=== PATIENT | male | born 1965 | race Caucasian/White ===

== ENCOUNTER 2018-04-24 23:55 | Inpatient (IN) ==
[2018-04-25 00:19] LABS: Basophils # 0.1 K/mm3 (0-0.2); Basophils % 0.3 % (0.1-2.0); Eosinophils # 0.1 K/mm3 (0.0-0.4); Eosinophils % 0.7 % (0.1-12.0); Hematocrit 46.4 % (42.0-52.0); Hemoglobin 16.2 g/dL (14.1-18.0); Lymphocytes # 2.4 K/mm3 (0.7-4.5); Lymphocytes % 15.9 % (10-50); Mean Corpuscular Hemoglobin 31.2 pg (27.0-31.2); Mean Corpuscular Volume 89.2 fl (80-94); Mean Platelet Volume 8.5 fl (7.4-10.4); Monocytes # 0.7 K/mm3 (0.1-1.0); Monocytes % 4.6 % (1.7-9.3); Neutrophils % 78.4 % (37.0-80.0); Platelet Count 311 K/mm3 (142-424); Red Cell Distribution Width 13.1 % (11.5-17.5); White Blood Count 15.3 K/mm3 (4.8-10.8)
[2018-04-25 00:32] LABS: Albumin Level 3.9 gm/dL (3.4-5.0); Bilirubin,Total 0.8 mg/dL (0.2-1.0); C-Reactive Protein 0.9 mg/L (0.0-0.9); Calcium 9.9 mg/dL (8.5-10.1); Total Protein,Serum 7.9 gm/dL (6.4-8.2)
--- NOTE | 2018-04-25 01:04 | Emergency Department Note ---
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 The time I documented below is in addition to time spent performing reported procedures but includes the following listed in this critical care notation. Medical Decision Making - Medical Records Medical records reviewed: Yes: I reviewed the patient's medical records. - Eduardo Inquiry Pt receiving controlled substance: No Vital Signs: 04/24/18 23:57 04/25/18 01:39 Temperature 98.4 F 98.4 F Temperature Source Oral Oral Pulse Rate [Right] 88 76 Respiratory Rate 20 16 Blood Pressure [Right Arm] 160/101 H 130/77 Blood Pressure Mean [Right Arm] 120 94 Blood Pressure Source [Right Arm] Automatic Cuff Automatic Cuff Blood Pressure Position [Right Arm] Supine Supine 02 Sat by Pulse Oximetry 100 97 Oxygen Delivery Method Room Air Room Air - Lab Data Lab results reviewed: Yes: I reviewed the patient's lab results. Lab Results 04/25/18 00:05: WBC 15.3 H, RBC 5.20, Hgb 16.2, Hct 46.4, MCV 89.2, MCH 31.2, MCHC 35.0, RDW 13.1, Plt Count 311, MPV 8.5, Neut % (Auto) 78.4, Lymph % (Auto) 15.9, [place] % (Auto) 4.6, Eos % (Auto) 0.7, Baso % (Auto) 0.3, Neut # (Auto) 12.0 H, Lymph # (Auto) 2.4, [place] # (Auto) 0.7, Eos # (Auto) 0.1, Baso # (Auto) 0.1, Total Counted 100, Neutrophils % (Manual) 80 H, Lymphocytes % (Manual) 19, Basophils % (Manual) 1.0, Platelet Estimate Normal, RBC Morphology Not Reportable, Anisocytosis 1+ 04/25/18 00:05: Sodium 136, Potassium 4.0, Chloride 99, Carbon Dioxide 26, Anion Gap 15.0, BUN 19 H, Creatinine 1.52 H, Estimated Creat Clear 86, Estimated GFR 49 L, Est GFR ( Amer) 59, Glucose 445 H*, Calcium 9.9, Total Bilirubin 0.8, AST 13 L, ALT 30, Alkaline Phosphatase 128 H, C-Reactive Protein 0.9, Total Protein 7.9, Albumin 3.9, Globulin 4.0 H, Albumin/Globulin Ratio 1.0 L, Amylase 24 L, Lipase 155 04/25/18 00:05: Acetone Level None detected 04/25/18 01:05: Lactate 1.5 Result diagrams: 04/25/18 00:05 04/25/18 00:05 Orders (Tests/Meds): ED MEDICATIONS Generic Name Dose Route Start Last Admin Trade Name Freq PRN Reason Stop Dose Admin Sodium Chloride 1,000 mls @ 999 mls/hr 04/25/18 00:15 04/25/18 00:27 Sod Chlor 0.9% 1000ml Bag IV 04/25/18 01:15 999 mls/hr .[id number] YULIA Administration Discontinued Medications Generic Name Dose Route Start Last Admin Trade Name Freq PRN Reason Stop Dose Admin Ketorolac Tromethamine 30 mg 04/25/18 00:08 04/25/18 00:27 Toradol 30mg/Ml Vial IV 04/25/18 00:09 30 mg ONCE ONE Administration Ondansetron HCl 4 mg 04/25/18 00:08 04/25/18 00:27 Zofran 4mg/2ml Vial IV 04/25/18 00:09 4 mg ONCE ONE Administration ORDERS Category Date Time Status CT abdomen pelvis wo con Stat Cat Scan 04/25/18 00:21 Taken ESR [Erythrocyte Sedimentation Rate] Stat Lab 04/25/18 00:05 Received Urinalysis and Microscopic Stat Lab 04/25/18 00:10 Ordered - CT Data CT Scan: Abdomen, Pelvis Time Received: 01:[address] Reviewed: Yes: I have viewed the radiologist's interpretation Preliminary Findings: Abnormal (sbo) - Physician Consults Physician Consulted: doni Reason -: Admission Nausea/Vomiting/Diarrhea HPI - General Chief complaint: Abdominal Pain Stated complaint: stomach pain,nausea,diarrhea Time Seen by Provider: 04/25/18 00:30 Mode of Arrival: Ambulatory Source of Information: Patient, Medical Record Limitations: No Limitations Description of Symptoms (Recalled from ER Triage Doc. by RN): Pt states he started getting cramps this AM and now having N/V/D with severe mid abd pain - History of Present Illness HPI Narrative: progressive abd pain today with nausea and vomiting MD complaint: nausea, vomiting Onset (ago): hour(s) Associated Abdominal Pain: Yes Location of pain: diffuse Severity: moderate Associated symptoms: denies other symptoms - Related Data Home Medications Medication Instructions Recorded Confirmed Amlodipine Besylate [Norvasc 5mg 5 mg PO DAILY 04/25/18 04/25/18 tablet] Aspirin [Aspir 81] 81 mg PO DAILY 04/25/18 04/25/18 Atorvastatin Calcium [Atorvastatin 40 mg PO DAILY 04/25/18 04/25/18 40mg Tab] Metformin HCl 1,000 mg PO DAILY 04/25/18 04/25/18 Allergies Allergy/AdvReac Type Severity Reaction Status Date / Time morphine Allergy Verified 04/25/18 00:08 [facility] History - Hepatitis A Screen Drug use history?: No High risk sexual behaviors?: No History of sexually transmitted infection?: No Currently employed?: No Childcare worker?: No Do you have indoor plumbing?: Yes Do you have electricity?: Yes Attestation statement:: This patient has been screened for Hepatitis A risk factors. I have reviewed the patient's past medical history: Yes - Social History Alcohol Intake: never Occupational Status: employed - Psychiatric History Expresses thoughts of harming self/others: None Suicide Plan Description: No Plan ROS Obtained: Yes All systems reviewed & no additional complaints - Constitutional Constitutional: Denies fever(s) - Eyes Eyes: Denies change in vision - ENT Ears, Nose, Mouth, and Throat: Denies sore throat - Cardiovascular Cardiovascular: Denies chest pain - Respiratory Respiratory: No cough - Gastrointestinal Gastrointestingal: Reports: as per HPI, abdominal pain, nausea, vomiting - Genitourinary Male Genitourinary: Denies hematuria - Musculoskeletal Musculoskeletal: Denies joint pain - Integumentary/Breasts Skin/Breast: Denies rash - Neurologic Neurologic: Denies seizure-like activity Physical Exam - General General appearance: alert - Head Head exam: normocephalic - Eye Eye exam: Present: PERRL, EOMI. Absent: scleral icterus - ENT ENT exam: Present: mucous membranes dry - Neck Neck exam: Present: trachea midline - Respiratory Respiratory exam: Absent: respiratory distress - Cardiovascular Cardiovascular exam: Present: regular rate, systolic murmur - Abdominal Exam Abdominal exam: Present: soft, tenderness, diminished bowel sounds Abdominal tenderness: Present: diffuse, moderate - Extremities Exam Extremities exam: Present: full ROM - Neurological Exam Neurological exam: Present: alert, oriented X3, CN II-XII intact - Psychiatric Psychiatric exam: Present: normal affect - Skin Skin exam: Absent: rash
[2018-04-25 01:23] LABS: Anisocytosis 1+; Lymphocytes % 19 % (10-50); Neutrophils % 80 % (42-76); Total Cells Counted 100
[2018-04-25 06:52] LABS: Basophils # 0.1 K/mm3 (0-0.2); Basophils % 0.4 % (0.1-2.0); Eosinophils # 0.1 K/mm3 (0.0-0.4); Eosinophils % 0.4 % (0.1-12.0); Hematocrit 41.9 % (42.0-52.0); Lymphocytes # 2.5 K/mm3 (0.7-4.5); Lymphocytes % 15.1 % (10-50); Mean Corpuscular HGB Conc 34.6 g/dL (31.8-35.4); Mean Corpuscular Hemoglobin 31.2 pg (27.0-31.2); Mean Corpuscular Volume 90.2 fl (80-94); Mean Platelet Volume 8.6 fl (7.4-10.4); Monocytes # 1.2 K/mm3 (0.1-1.0); Neutrophils # 12.9 K/mm3 (1.8-7.8); Neutrophils % 77.1 % (37.0-80.0); Platelet Count 257 K/mm3 (142-424); Red Blood Count 4.64 M/mm3 (4.60-6.20); Red Cell Distribution Width 13.3 % (11.5-17.5); White Blood Count 16.7 K/mm3 (4.8-10.8)
[2018-04-25 06:56] LABS: Anion Gap 11.4 mEq/L (5-15); Potassium 4.4 mmoL/L (3.5-5.1)
[2018-04-25 07:20] LABS: Hemoglobin 14.5 g/dL (14.1-18.0)
[2018-04-25 07:22] LABS: Calcium 8.7 mg/dL (8.5-10.1)
--- NOTE | 2018-04-25 07:35 | Pharmacy Consult Notes ---
[facility] Pharmacy VTE Monitoring - Patient Demographics Admission date: 04/25/18 Report Date: 04/25/18 Time: 07:35 Allergies/Adverse Reactions: Patient Allergies morphine Allergy (Verified 04/25/18 00:08) Height: 1.83 m Weight: 104.071 kg Patient Problems: Current Active Problems Small bowel obstruction (Acute) Diabetes mellitus (Acute) - VTE Risk Labs: VTE Related Lab Results Hgb 14.5 g/dL (14.1-18.0) D 04/25/18 06:10 Hct 41.9 % (42.0-52.0) L 04/25/18 06:10 Plt Count 257 K/mm3 (142-424) 04/25/18 06:10 BUN 22 mg/dL (7-18) H 04/25/18 06:10 Creatinine 1.52 mg/dL (0.70-1.30) H 04/25/18 06:10 Estimated Creat Clear 86 mL/min (50-200) 04/25/18 06:10 VTE Score: 1 VTE Risk Level: Very Low Risk - Prophylaxis VTE Prophylaxis Ordered?: Yes Types of VTE Prophylaxis: TEDS Knee High Location of Applied Device: Bilateral Lower Extremeties - VTE Diagnosis Confirmed Treatment or plan recommended: Continue Current Treatment
--- NOTE | 2018-04-25 08:25 | History & Physical Report ---
*Admission Date: 04/25/18 *Chief complaint: Abdominal pain/vomiting *History of present illness: 52 old white male with history of coronary disease-status post CABG in 2005, along with diabetes, but no prior intra-abdominal surgery, who presented to the emergency department early this morning after 18 hours of increasing abdominal pain accompanied with vomiting. He reports that yesterday morning he awoke and felt pain in his abdomen that increased throughout the day and caused him to leave work early and come back to his home. He had multiple formed stools without blood or melena and then began to vomit. He denied coffee-ground emesis or blood in the emesis but became afflicted by increased pain. He presented to the emergency department early this morning where he was found to have evidence of small obstruction with mesenteric inflammation. Labs were otherwise fairly unremarkable except for hyperglycemia, but normal amylase/lipase were noted. [facility] History I have reviewed the patient's past medical history: Yes Medical History: Reports:: Coronary Artery Disease, Diabetes Mellitus Type 2, Hyperlipidemia, Hypertension Denies:: Cancer, Diabetes Mellitus Type 1, MRSA *Have you ever received a pneumonia vaccine?: No *Have you received a flu vaccine this season?: No Laterality Cases: Bilateral: Total Knee Replacement Other Surgeries: Yes: CABG Amputation: No - *Social History Alcohol Intake: current Alcohol Intake Frequency:: holidays/special occasions only *Occupational Status:: employed *Travel in the last 8 weeks: None - Psychiatric History Expresses thoughts of harming self/others: None Suicide Plan Description: No Plan Family Hx:: No significant family history Review of Systems - Review of Systems Review of systems:: pertinent systems reviewed and negative unless documented below - Constitutional Reports anorexia, Reports body ache(s) - Eyes Denies blind spots, Denies blurry vision, Denies change in vision - ENT Denies abnormal hearing, Denies bleeding gums - *Cardiovascular Denies chest pain, Denies chest pain at rest, Denies shortness of breath, Denies shortness of breath with activity, Denies irregular heart rhythm, Denies leg swelling - *Respiratory Denies change in phlegm color, Denies chest congestion, Denies cough - *Gastrointestinal Reports abdominal pain, Reports belching, Reports bloating, Reports change in bowel habits, Denies coffee ground vomit, Denies constipation, Denies vomiting blood, Denies bright, red blood in stools - *Genitourinary Denies difficulty urinating - *Musculoskeletal Denies abnormal walking - Integumentary/Breasts Denies acne - *Neurologic Denies seizure-like activity - Psychiatric Denies abnormal sleep pattern - Endocrine Denies cold intolerance - Hematologic/Lymphatic Denies easy bleeding Meds Home Medications Medication Instructions Recorded Confirmed Type Amlodipine Besylate 10 mg PO DAILY 04/25/18 04/25/18 History Aspirin [Aspir 81] 81 mg PO DAILY 04/25/18 04/25/18 History Atorvastatin Calcium [Atorvastatin 80 mg PO DAILY 04/25/18 04/25/18 History 80mg Tab] Ezetimibe 10 mg PO DAILY 04/25/18 04/25/18 History Losartan Potassium 50 mg PO DAILY 04/25/18 04/25/18 History Metformin HCl 1,000 mg PO BIDWM 04/25/18 04/25/18 History Allergies Allergy/AdvReac Type Severity Reaction Status Date / Time morphine Allergy Verified 04/25/18 00:08 Exam Vital signs and Labs for Last 24 Hours: Temp Pulse Resp BP Pulse Ox 97.8 F 77 18 113/74 94 L 04/25/18 08:00 04/25/18 08:00 04/25/18 08:00 04/25/18 08:00 04/25/18 08:00 Laboratory Results - last 24 hr 04/25/18 00:05: WBC 15.3 H, RBC 5.20, Hgb 16.2, Hct 46.4, MCV 89.2, MCH 31.2, MCHC 35.0, RDW 13.1, Plt Count 311, MPV 8.5, Neut % (Auto) 78.4, Lymph % (Auto) 15.9, [place] % (Auto) 4.6, Eos % (Auto) 0.7, Baso % (Auto) 0.3, Neut # (Auto) 12.0 H, Lymph # (Auto) 2.4, [place] # (Auto) 0.7, Eos # (Auto) 0.1, Baso # (Auto) 0.1, Total Counted 100, Neutrophils % (Manual) 80 H, Lymphocytes % (Manual) 19, Basophils % (Manual) 1.0, Platelet Estimate Normal, RBC Morphology Not Reportable, Anisocytosis 1+ 04/25/18 00:05: Sodium 136, Potassium 4.0, Chloride 99, Carbon Dioxide 26, Anion Gap 15.0, BUN 19 H, Creatinine 1.52 H, Estimated Creat Clear 86, Estimated GFR 49 L, Est GFR ( Amer) 59, Glucose 445 H*, Calcium 9.9, Total Bilirubin 0.8, AST 13 L, ALT 30, Alkaline Phosphatase 128 H, C-Reactive Protein 0.9, Total Protein 7.9, Albumin 3.9, Globulin 4.0 H, Albumin/Globulin Ratio 1.0 L, Amylase 24 L, Lipase 155 04/25/18 00:05: Acetone Level None detected 04/25/18 00:05: ESR 29 H 04/25/18 01:05: Lactate 1.5 04/25/18 06:10: WBC 16.7 H, RBC 4.64, Hgb 14.5 D, Hct 41.9 L, MCV 90.2, MCH 31.2, MCHC 34.6, RDW 13.3, Plt Count 257, MPV 8.6, Neut % (Auto) 77.1, Lymph % (Auto) 15.1, [place] % (Auto) 7.0, Eos % (Auto) 0.4, Baso % (Auto) 0.4, Neut # (Auto) 12.9 H, Lymph # (Auto) 2.5, [place] # (Auto) 1.2 H, Eos # (Auto) 0.1, Baso # (Auto) 0.1 04/25/18 06:10: Sodium 138, Potassium 4.4, Chloride 104, Carbon Dioxide 27, Anion Gap 11.4, BUN 22 H, Creatinine 1.52 H, Estimated Creat Clear 86, Estimated GFR 49 L, Est GFR ( Amer) 59, Glucose 378 H, Calcium 8.7 D 04/25/18 06:46: POC Glucose 377 H* I & O for Last 24 hours: Intake & Output 04/22/18 04/23/18 04/24/18 04/25/18 11:59 11:59 11:59 11:59 Intake Total 1000 / 1000 Balance 1000 / 1000 Weight 229 lb 7 oz Narrative: Patient is awake, oriented x3. No scleral icterus, no jaundice. Cranial nerves intact, oropharynx clear, JVD. Lungs clear. Heart regular. Abdomen is diffusely tender, hyperactive bowel sounds. Patient actively vomiting but no regurgitant person. No distal edema clubbing or cyanosis. 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 Surgical consultation. Continue n.p.o. status.
--- NOTE | 2018-04-25 11:29 | Consult Report ---
*Admission Date: 04/25/18 *Chief complaint: Abdominal pain *History of present illness: Patient is a 52-year-old otherwise healthy white male from [place] with a history of diabetes and coronary artery disease status post prior CABG. No prior history of abdominal issues or prior abdominal surgeries. He states that he awoke yesterday morning on 04/24/18 with some vague upper abdominal pain. This became progressively severe throughout the day. He had some abdominal bloating and felt some nausea. He induced vomiting which gave him some temporary relief but then the pain and nausea recurred. He did have multiple formed stools yesterday which is unusual for him. Denies any passage of blood. He presented to the emergency department here at [facility] late yesterday evening. His workup includes CT scan without any contrast whatsoever which revealed findings of small bowel obstruction. Exact transition point was difficult to identify but there was also some mesenteric haziness and inflammation and a small amount of ascites. Patient has no similar prior symptoms. Overnight after admission he had some dry heaves and retching. Surgical consultation was ordered this morning. Patient was ordered nasogastric tube. He has had no additional retching or vomiting. He states that his pain has improved but his abdomen is "sore". Review of Systems - Review of Systems Review of systems:: pertinent systems reviewed and negative unless documented below - Constitutional Denies anorexia, Denies chills - Eyes Denies change in vision - ENT Denies abnormal hearing - *Cardiovascular Denies chest pain - *Respiratory Denies cough - *Gastrointestinal Reports abdominal pain, Reports belching, Reports change in stools, Reports vomiting - *Genitourinary Denies difficulty urinating - *Musculoskeletal Denies abnormal walking - *Neurologic Denies abnormal walking, Denies abnormal hearing, Denies seizure-like activity [facility] History Medical History: Reports:: Coronary Artery Disease, Diabetes Mellitus Type 2, Hyperlipidemia, Hypertension Denies:: Cancer, Diabetes Mellitus Type 1, MRSA *Have you ever received a pneumonia vaccine?: No *Have you received a flu vaccine this season?: No Laterality Cases: Bilateral: Total Knee Replacement Other Surgeries: Yes: CABG Amputation: No - *Social History Alcohol Intake: current Alcohol Intake Frequency:: holidays/special occasions only *Occupational Status:: employed *Travel in the last 8 weeks: None - Psychiatric History Expresses thoughts of harming self/others: None Suicide Plan Description: No Plan Family Hx:: No significant family history Meds Home Medications Medication Instructions Recorded Confirmed Type Amlodipine Besylate 10 mg PO DAILY 04/25/18 04/25/18 History Aspirin [Aspir 81] 81 mg PO DAILY 04/25/18 04/25/18 History Atorvastatin Calcium [Atorvastatin 80 mg PO DAILY 04/25/18 04/25/18 History 80mg Tab] Ezetimibe 10 mg PO DAILY 04/25/18 04/25/18 History Losartan Potassium 50 mg PO DAILY 04/25/18 04/25/18 History Metformin HCl 1,000 mg PO BIDWM 04/25/18 04/25/18 History Allergies Allergy/AdvReac Type Severity Reaction Status Date / Time morphine Allergy Verified 04/25/18 00:08 Exam Vital signs and Labs for Last 24 Hours: Temp Pulse Resp BP Pulse Ox 97.8 F 77 18 113/74 94 L 04/25/18 08:00 04/25/18 08:00 04/25/18 08:00 04/25/18 08:00 04/25/18 08:00 Laboratory Results - last 24 hr 04/25/18 00:05: WBC 15.3 H, RBC 5.20, Hgb 16.2, Hct 46.4, MCV 89.2, MCH 31.2, MCHC 35.0, RDW 13.1, Plt Count 311, MPV 8.5, Neut % (Auto) 78.4, Lymph % (Auto) 15.9, [place] % (Auto) 4.6, Eos % (Auto) 0.7, Baso % (Auto) 0.3, Neut # (Auto) 12.0 H, Lymph # (Auto) 2.4, [place] # (Auto) 0.7, Eos # (Auto) 0.1, Baso # (Auto) 0.1, Total Counted 100, Neutrophils % (Manual) 80 H, Lymphocytes % (Manual) 19, Basophils % (Manual) 1.0, Platelet Estimate Normal, RBC Morphology Not Reportable, Anisocytosis 1+ 04/25/18 00:05: Sodium 136, Potassium 4.0, Chloride 99, Carbon Dioxide 26, Anion Gap 15.0, BUN 19 H, Creatinine 1.52 H, Estimated Creat Clear 86, Estimated GFR 49 L, Est GFR ( Amer) 59, Glucose 445 H*, Calcium 9.9, Total Bilirubin 0.8, AST 13 L, ALT 30, Alkaline Phosphatase 128 H, C-Reactive Protein 0.9, Total Protein 7.9, Albumin 3.9, Globulin 4.0 H, Albumin/Globulin Ratio 1.0 L, Amylase 24 L, Lipase 155 04/25/18 00:05: Acetone Level None detected 04/25/18 00:05: ESR 29 H 04/25/18 01:05: Lactate 1.5 04/25/18 06:10: WBC 16.7 H, RBC 4.64, Hgb 14.5 D, Hct 41.9 L, MCV 90.2, MCH 31.2, MCHC 34.6, RDW 13.3, Plt Count 257, MPV 8.6, Neut % (Auto) 77.1, Lymph % (Auto) 15.1, [place] % (Auto) 7.0, Eos % (Auto) 0.4, Baso % (Auto) 0.4, Neut # (Auto) 12.9 H, Lymph # (Auto) 2.5, [place] # (Auto) 1.2 H, Eos # (Auto) 0.1, Baso # (Auto) 0.1 04/25/18 06:10: Sodium 138, Potassium 4.4, Chloride 104, Carbon Dioxide 27, Anion Gap 11.4, BUN 22 H, Creatinine 1.52 H, Estimated Creat Clear 86, Estimated GFR 49 L, Est GFR ( Amer) 59, Glucose 378 H, Calcium 8.7 D 04/25/18 06:46: POC Glucose 377 H* I & O for Last 24 hours: Intake & Output 04/22/18 04/23/18 04/24/18 04/25/18 11:59 11:59 11:59 11:59 Intake Total 1000 / 1000 Balance 1000 / 1000 Weight 229 lb 7 oz - *Routine HEENT Exam Head: Present: normocephalic Eye: Present: EOMI, PERRL ENT: Present: mucous membranes moist - *Routine Neck Exam Present: supple. Absent: lymphadenopathy - *Routine Respiratory Exam Present: CTA bilaterally - *Routine Cardiovascular Exam Present: RRR - *Routine Abdominal Exam Present: soft, tenderness Comments: His abdomen is soft. He has hypoactive bowel sounds. He does have some tender ness with voluntary guarding diffusely. - *Routine Extremities Exam Absent: cyanosis, clubbing, edema - *Routine Skin Exam Present: warm. Absent: rash - *Routine Neurological Exam Present: alert, oriented X3 - Detailed Eye Exam Eyelids: Left normal inspection Results - Labs 04/25/18 06:10 04/25/18 06:10 Laboratory Results - last 24 hr 04/25/18 00:05: WBC 15.3 H, RBC 5.20, Hgb 16.2, Hct 46.4, MCV 89.2, MCH 31.2, MCHC 35.0, RDW 13.1, Plt Count 311, MPV 8.5, Neut % (Auto) 78.4, Lymph % (Auto) 15.9, [place] % (Auto) 4.6, Eos % (Auto) 0.7, Baso % (Auto) 0.3, Neut # (Auto) 12.0 H, Lymph # (Auto) 2.4, [place] # (Auto) 0.7, Eos # (Auto) 0.1, Baso # (Auto) 0.1, Total Counted 100, Neutrophils % (Manual) 80 H, Lymphocytes % (Manual) 19, Basophils % (Manual) 1.0, Platelet Estimate Normal, RBC Morphology Not Reportable, Anisocytosis 1+ 04/25/18 00:05: Sodium 136, Potassium 4.0, Chloride 99, Carbon Dioxide 26, Anion Gap 15.0, BUN 19 H, Creatinine 1.52 H, Estimated Creat Clear 86, Estimated GFR 49 L, Est GFR ( Amer) 59, Glucose 445 H*, Calcium 9.9, Total Bilirubin 0.8, AST 13 L, ALT 30, Alkaline Phosphatase 128 H, C-Reactive Protein 0.9, Total Protein 7.9, Albumin 3.9, Globulin 4.0 H, Albumin/Globulin Ratio 1.0 L, Amylase 24 L, Lipase 155 04/25/18 00:05: Acetone Level None detected 04/25/18 00:05: ESR 29 H 04/25/18 01:05: Lactate 1.5 04/25/18 06:10: WBC 16.7 H, RBC 4.64, Hgb 14.5 D, Hct 41.9 L, MCV 90.2, MCH 31.2, MCHC 34.6, RDW 13.3, Plt Count 257, MPV 8.6, Neut % (Auto) 77.1, Lymph % (Auto) 15.1, [place] % (Auto) 7.0, Eos % (Auto) 0.4, Baso % (Auto) 0.4, Neut # (Auto) 12.9 H, Lymph # (Auto) 2.5, [place] # (Auto) 1.2 H, Eos # (Auto) 0.1, Baso # (Auto) 0.1 04/25/18 06:10: Sodium 138, Potassium 4.4, Chloride 104, Carbon Dioxide 27, Anion Gap 11.4, BUN 22 H, Creatinine 1.52 H, Estimated Creat Clear 86, Estimated GFR 49 L, Est GFR ( Amer) 59, Glucose 378 H, Calcium 8.7 D 04/25/18 06:46: POC Glucose 377 H* Assessment and Plan (1) Diabetes mellitus Current visit: Yes Status: Acute Qualifiers: Diabetes mellitus type: type 2 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 His presentation is unusual in that he is prior abdominal surgery. There is no clear evidence of any obstructing mass on his noncontrast CT scan. Patient has had some improvement in symptoms with nasogastric tube placement however it is quite concerning with the ongoing abdominal tenderness. I will plan to check a acute abdominal series to evaluate placement of nasogastric tube. Continue to follow closely. If no significant clinical improvement could require exploratory laparotomy. If he shows some partial improvement may repeat CT scan with IV and oral contrast to better ascertain the etiology.
[2018-04-26 06:31] LABS: Basophils % 0.3 % (0.1-2.0); Eosinophils # 0.2 K/mm3 (0.0-0.4); Eosinophils % 2.6 % (0.1-12.0); Lymphocytes # 2.3 K/mm3 (0.7-4.5); Lymphocytes % 29.2 % (10-50); Mean Corpuscular HGB Conc 34.9 g/dL (31.8-35.4); Mean Corpuscular Hemoglobin 31.4 pg (27.0-31.2); Mean Corpuscular Volume 90.1 fl (80-94); Mean Platelet Volume 8.5 fl (7.4-10.4); Monocytes # 0.4 K/mm3 (0.1-1.0); Monocytes % 4.8 % (1.7-9.3); Neutrophils # 4.9 K/mm3 (1.8-7.8); Neutrophils % 63.1 % (37.0-80.0); Platelet Count 203 K/mm3 (142-424); Red Cell Distribution Width 13.5 % (11.5-17.5); White Blood Count 7.7 K/mm3 (4.8-10.8)
[2018-04-26 06:56] LABS: Albumin Level 2.8 gm/dL (3.4-5.0); Albumin/Globulin Ratio 0.9 (1.1-1.8); Anion Gap 11.3 mEq/L (5-15); Bilirubin,Total 0.6 mg/dL (0.2-1.0); Calcium 8.3 mg/dL (8.5-10.1); Globulin 3.2 gm/dl (1.3-3.2); Potassium 3.3 mmoL/L (3.5-5.1)
[2018-04-26 07:04] LABS: Hemoglobin 12.6 g/dL (14.1-18.0)
--- NOTE | 2018-04-26 08:10 | Progress Note ---
Subjective Patient reports: feels better Narrative: Passed some gas yesterday. Biggest complaint is sore throat and ear congestion. NG output appears mostly consistent with melted ice chips. Exam Vital signs and Labs for Last 24 Hours: Temp Pulse Resp BP Pulse Ox 98.9 F 73 18 149/87 H 97 04/26/18 07:36 04/26/18 07:36 04/26/18 07:36 04/26/18 07:36 04/26/18 07:36 Laboratory Results - last 24 hr 04/25/18 11:25: POC Glucose 328 H* 04/25/18 12:44: Lactate 1.7 04/25/18 16:24: POC Glucose 214 H 04/25/18 20:31: POC Glucose 161 H 04/26/18 05:34: WBC 7.7 D, RBC 4.00 L, Hgb 12.6 L D, Hct 36.0 L, MCV 90.1, MCH 31.4 H, MCHC 34.9, RDW 13.5, Plt Count 203, MPV 8.5, Neut % (Auto) 63.1, Lymph % (Auto) 29.2, [place] % (Auto) 4.8, Eos % (Auto) 2.6, Baso % (Auto) 0.3, Neut # (Auto) 4.9, Lymph # (Auto) 2.3, [place] # (Auto) 0.4, Eos # (Auto) 0.2, Baso # (Auto) 0.0 04/26/18 05:34: Sodium 146 H, Potassium 3.3 L D, Chloride 111 H, Carbon Dioxide 27, Anion Gap 11.3, BUN 21 H, Creatinine 1.25, Estimated Creat Clear 105, Estimated GFR 61, Est GFR ( Amer) 74 D, Glucose 187 H D, Calcium 8.3 L, Total Bilirubin 0.6, AST 9 L D, ALT 22 D, Alkaline Phosphatase 78, Total Protein 6.0 L, Albumin 2.8 L D, Globulin 3.2, Albumin/Globulin Ratio 0.9 L, Amylase 24 L 04/26/18 05:34: Lipase 153 04/26/18 06:06: POC Glucose 180 H I & O for Last 24 hours: Intake & Output 04/23/18 04/24/18 04/25/18 04/26/18 11:59 11:59 11:59 11:59 Intake Total 1000 / 1000 4023 / 4023 Output Total 1100 / 1100 700 / 700 Balance -100 / -100 3323 / 3323 Weight 229 lb 231 lb 7 oz - *Routine Abdominal Exam Present: soft, tenderness Comments: Mild tenderness on right lower abdomen. No guarding or rebound. Progress Note: A&P (1) Diabetes mellitus Status: Acute Current Visit: Yes (2) Small bowel obstruction Status: Acute Current Visit: Yes Assessment and Plan for All Diagnoses:: Repeat CT scan with IV and oral contrast for follow up and better evaluation. If repeat CT scan shows improvement then may try NG tube out.
--- NOTE | 2018-04-26 08:32 | Progress Note ---
Internal Medicine - PN: Subj *Date: 04/26/18 *Time: 08:00 Interval history: Patient c/o sore throat and ear pain. NGT drainage is light colored, output has significantly decreased per RN. Abdominal pain improved, no nausea. No diarrhea Exam Vital signs and Labs for Last 24 Hours: Temp Pulse Resp BP Pulse Ox 98.9 F 73 18 149/87 H 97 04/26/18 07:36 04/26/18 07:36 04/26/18 07:36 04/26/18 07:36 04/26/18 07:36 Laboratory Results - last 24 hr 04/25/18 11:25: POC Glucose 328 H* 04/25/18 12:44: Lactate 1.7 04/25/18 16:24: POC Glucose 214 H 04/25/18 20:31: POC Glucose 161 H 04/26/18 05:34: WBC 7.7 D, RBC 4.00 L, Hgb 12.6 L D, Hct 36.0 L, MCV 90.1, MCH 31.4 H, MCHC 34.9, RDW 13.5, Plt Count 203, MPV 8.5, Neut % (Auto) 63.1, Lymph % (Auto) 29.2, Ralls % (Auto) 4.8, Eos % (Auto) 2.6, Baso % (Auto) 0.3, Neut # (Auto) 4.9, Lymph # (Auto) 2.3, Ralls # (Auto) 0.4, Eos # (Auto) 0.2, Baso # (Auto) 0.0 04/26/18 05:34: Sodium 146 H, Potassium 3.3 L D, Chloride 111 H, Carbon Dioxide 27, Anion Gap 11.3, BUN 21 H, Creatinine 1.25, Estimated Creat Clear 105, Estimated GFR 61, Est GFR ( Amer) 74 D, Glucose 187 H D, Calcium 8.3 L, Total Bilirubin 0.6, AST 9 L D, ALT 22 D, Alkaline Phosphatase 78, Total Protein 6.0 L, Albumin 2.8 L D, Globulin 3.2, Albumin/Globulin Ratio 0.9 L, Amylase 24 L 04/26/18 05:34: Lipase 153 04/26/18 06:06: POC Glucose 180 H I & O for Last 24 hours: Intake & Output 04/23/18 04/24/18 04/25/18 04/26/18 11:59 11:59 11:59 11:59 Intake Total 1000 / 1000 4023 / 4023 Output Total 1100 / 1100 700 / 700 Balance -100 / -100 3323 / 3323 Weight 229 lb 231 lb 7 oz Narrative: ALert and oriented x3. Rate and rhythm regular. No murmur. No LE edema. Lung sounds clear and equal. Abdomen soft with diffuse tenderness, improved. 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 supervisor use Diabetes mellitus complication status: with unspecified complications Qualified Code(s): E11.8 - Type 2 diabetes mellitus with unspecified complications; Z79.4 - snf (current) use of insulin Category: Medical Code(s): E11.9 - Type 2 diabetes mellitus without complications (2) Small bowel obstruction Current visit: Yes Status: Acute Category: Medical Code(s): K56.609 - Unspecified intestinal obstruction, unspecified as to partial versus complete obstruction - Assessment and plan all Dx Assessment and Plan for all problems:: Sore throat and ear discomfort is due to irritation from NGT. CT scan of abdomen today. Will remove pending surgery recommendation.
--- NOTE | 2018-04-27 07:47 | Progress Note ---
Subjective Patient reports: feels better Narrative: Patient states that he feels better. His CT scan with IV and oral contrast yesterday revealed no evidence of any bowel obstruction with good transit of contrast. There is no bowel distention however there was some findings of thickening of the small bowel. Exam Vital signs and Labs for Last 24 Hours: Temp Pulse Resp BP Pulse Ox 98.2 F 69 18 153/84 H 97 04/27/18 04:00 04/27/18 04:00 04/27/18 04:00 04/27/18 04:00 04/27/18 04:00 Laboratory Results - last 24 hr 04/26/18 12:01: POC Glucose 170 H 04/26/18 16:36: POC Glucose 143 H 04/26/18 20:49: POC Glucose 197 H I & O for Last 24 hours: Intake & Output 04/24/18 04/25/18 04/26/18 04/27/18 11:59 11:59 11:59 11:59 Intake Total 1000 / 1000 3373 / 3373 4565 / 4565 Output Total 1100 / 1100 1350 / 1350 Balance -100 / -100 2022 4565 / 4565 Weight 229 lb 231 lb 7 oz 231 lb 1 oz - *Routine Abdominal Exam Present: soft Comments: He has very minimal tenderness in the mid abdomen. Progress Note: A&P (1) Diabetes mellitus Status: Acute Current Visit: Yes (2) Small bowel obstruction Status: Acute Current Visit: Yes Assessment and Plan for All Diagnoses:: He has shown clinical improvement. Unclear as to the etiology. This may be some sort of inflammatory enteritis. We will go ahead and advance his diet. If he continues to improve possible discharge soon with outpatient follow-up.
--- NOTE | 2018-04-27 08:39 | Progress Note ---
Internal Medicine - PN: Subj *Date: 04/27/18 *Time: 08:38 Interval history: Patient overall feels well, tolerated liquids last night and this morning very nicely. See surgery note. Exam Vital signs and Labs for Last 24 Hours: Temp Pulse Resp BP Pulse Ox 98.3 F 69 18 154/73 H 95 04/27/18 08:00 04/27/18 08:00 04/27/18 08:00 04/27/18 08:00 04/27/18 08:00 Laboratory Results - last 24 hr 04/26/18 12:01: POC Glucose 170 H 04/26/18 16:36: POC Glucose 143 H 04/26/18 20:49: POC Glucose 197 H I & O for Last 24 hours: Intake & Output 04/24/18 04/25/18 04/26/18 04/27/18 11:59 11:59 11:59 11:59 Intake Total 1000 / 1000 3373 / 3373 4565 / 4565 Output Total 1100 / 1100 1350 / 1350 Balance -100 / -100 2022 4565 / 4565 Weight 229 lb 231 lb 7 oz 231 lb 1 oz Narrative: Vision is talkative. Oriented. Oropharynx clear. No JVD. Heart rate without murmurs. Lungs clear. Abdomen soft, normalized bowel sounds. Minimal tenderness with deep palpation but vastly improved. No clubbing or edema. 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 Agree with surgical plan.
--- NOTE | 2018-04-27 13:52 | Discharge Summary ---
General - General Admission date:: 04/25/18 Discharge date: 04/27/18 HPI HPI: 52 old white male with history of coronary disease-status post CABG in 2005, along with diabetes, but no prior intra-abdominal surgery, who presented to the emergency department early this morning after 18 hours of increasing abdominal pain accompanied with vomiting. He reports that yesterday morning he awoke and felt pain in his abdomen that increased throughout the day and caused him to leave work early and come back to his home. He had multiple formed stools without blood or melena and then began to vomit. He denied coffee-ground emesis or blood in the emesis but became afflicted by increased pain. He presented to the emergency department early this morning where he was found to have evidence of small obstruction with mesenteric inflammation. Labs were otherwise fairly unremarkable except for hyperglycemia, but normal amylase/lipase were noted. Hospital Course Hospital Course: Patient was admitted to hospital, made n.p.o., NG tube was placed which resulted in 2-3 L of gastric contents being evacuated with good relief of symptoms of pain and distention. X-rays and CT scan showed improvement of small bowel obstruction and NG tube was removed and patient was given clear liquid diet. Patient's diet was advanced to full liquids with good toleration. Patient noted that he had been on multiple antibiotics over the past 6 months for ear infections and sinus infections and when he began to have a little bit of diarrhea PCR testing was done which revealed a positive test for C. difficile. As a result patient will be placed on p.o. vancomycin. He is feeling well, walking well, exam is normalized as noted below. He will be discharged home with p.o. vancomycin and p.o. probiotics and close follow-up with his regular physician. Objective Vital signs: Temp Pulse Resp BP Pulse Ox 98.3 F 69 18 154/73 H 95 04/27/18 08:00 04/27/18 08:00 04/27/18 08:00 04/27/18 08:00 04/27/18 08:00 Narrative: Patient is pleasant, ambulatory, neurologically intact. No scleral icterus. No jaundice. Abdomen soft, minimal tenderness with vigorous/deep palpation but vastly improved. Normal bowel sounds. Lungs clear, heart rate regular. No edema or clubbing or cyanosis. Results Labs on day of discharge: Labs from last 24 hours 04/27/18 04/27/18 04/27/18 11:22 10:00 06:11 POC Glucose 278 H 144 H Stl Aeromonas (PCR) Not detected Stl C. cayetanensis PCR Not detected Stool Rotavirus (PCR) Not detected Stl Adenov F 40/41 PCR Not detected Stool Astrovirus (PCR) Not detected Stool Campylobacter PCR Not detected Stl C.difficile Tox PCR Detected A Stool Cryptosporidium PCR Not detected Stl E.coli Shiga Tox PCR Not detected Stool E coli O157 PCR Not detected Stl Enterotoxigenic E PCR Not detected Stool EPEC (PCR) Not detected Stool EAEC (PCR) Not detected Stl E. histolytica PCR Not detected Stool Giardia Lamblia PCR Not detected Stool Salmonella PCR Not detected Stool Sapovirus (PCR) Not detected Stl P. shigelloides PCR Not detected Stl Shigella/EIEC PCR Not detected St Y.enterocolitica PCR Not detected Stool Vibrio (PCR) Not detected Stl Vibrio cholerae PCR Not detected Stl Norovirus GI/GII PCR Not detected 04/26/18 04/26/18 20:49 16:36 POC Glucose 197 H 143 H Stl Aeromonas (PCR) Stl C. cayetanensis PCR Stool Rotavirus (PCR) Stl Adenov F 40/41 PCR Stool Astrovirus (PCR) Stool Campylobacter PCR Stl C.difficile Tox PCR Stool Cryptosporidium PCR Stl E.coli Shiga Tox PCR Stool E coli O157 PCR Stl Enterotoxigenic E PCR Stool EPEC (PCR) Stool EAEC (PCR) Stl E. histolytica PCR Stool Giardia Lamblia PCR Stool Salmonella PCR Stool Sapovirus (PCR) Stl P. shigelloides PCR Stl Shigella/EIEC PCR St Y.enterocolitica PCR Stool Vibrio (PCR) Stl Vibrio cholerae PCR Stl Norovirus GI/GII PCR DS: Diagnosis - Discharge Diagnosis (1) Diabetes mellitus Status: Chronic (2) Small bowel obstruction Status: Resolved (3) Clostridium difficile colitis Status: Acute Problem details: Community-acquired secondary to outpatient anita iotic use Discharge Plan - Patient Discharge Instructions ACTIVITY: Continue current activity DIET: low fat, low cholesterol Patient Instructions: Acute Abdominal Pain, Small Bowel Obstruction, [place] Diet, Antibiotic-associated Colitis -- C difficile - Follow up Plan Follow up with: Jose Thrasher [Primary Care Provider] - 05/02/18 Disposition: Home, Self-[facility] Medications: Home Medications Medication Instructions Recorded Confirmed Type Amlodipine Besylate 10 mg PO DAILY 04/25/18 04/25/18 History Aspirin [Aspir 81] 81 mg PO DAILY 04/25/18 04/25/18 History Atorvastatin Calcium [Atorvastatin 80 mg PO DAILY 04/25/18 04/25/18 History 80mg Tab] Ezetimibe 10 mg PO DAILY 04/25/18 04/25/18 History Losartan Potassium 50 mg PO DAILY 04/25/18 04/25/18 History Metformin HCl 1,000 mg PO BIDWM 04/25/18 04/25/18 History L. Acidophilus/Strept/LA P-Nehemiah 1 cap PO DAILY 30 Days #30 capsule 04/27/18 Rx [Debora-Q Probiotic Capsule] Vancomycin HCl [Vancomycin 500mg 125 mg PO QID #28 vial 04/27/18 Rx vial] Prescriptions/Medication Reconciliation: New Vancomycin HCl [Vancomycin 500mg vial] 125 mg PO QID #28 vial L. Acidophilus/Strept/LA P-Nehemiah [Debora-Q Probiotic Capsule] 1 cap PO DAILY 30 Days #30 capsule Continue Metformin HCl 1,000 mg PO BIDWM Aspirin [Aspir 81] 81 mg PO DAILY Atorvastatin Calcium [Atorvastatin 80mg Tab] 80 mg PO DAILY Losartan Potassium 50 mg PO DAILY Ezetimibe 10 mg PO DAILY Amlodipine Besylate 10 mg PO DAILY
== END 2018-04-27 14:45 | disposition home or self-care (01) | DRG 389 ==
LOC: ER 23:55 → 2ND 23:55 → OBSVTOIN 04-25 02:15 → 2ND 04-25 02:16
PROVIDERS: ADMIT Internal Medicine Adolescent Medicine; ATTEND Internal Medicine Adolescent Medicine
CPT/HCPCS: 36415; 74019; 74020; 74176; 74177; 80048; 80053; 82009; 82150; 82962; 83605; 83690; 85007; 85025; 85651; 86140; 87040; 87507; 96365; 96375; 99284; J2405; J3370

== ENCOUNTER 2020-03-18 14:56 | Emergency (ER) | payer MEDICAID, SELFPAY ==
[2020-03-18 14:58] VITALS: BP 188/101; PULSE 80; RESP 20; TEMP 36.7; O2SAT 96; BMI 30.5
--- NOTE | 2020-03-18 15:15 | XR_ITS ---
PROCEDURE: XR HAND RT MIN 3V CLINICAL INDICATION: injury Posttraumatic pain COMPARISON: No exams were available for comparison FINDINGS: No fracture or dislocation. No lytic or blastic change. There is normal mineralization. The joint spaces are well-preserved. No significant degenerative/arthritic changes. No erosive changes evident. Other findings:None. IMPRESSION: No acute findings. Dictated by: Hesham Rock MD 03/18/2020 15:44 Hesham Rock MD in [place] 03/18/2020 15:44
--- NOTE | 2020-03-18 15:25 | XR_ITS ---
PROCEDURE: XR FINGER RT MIN 2V CLINICAL INDICATION: thumb injury Pain wound to COMPARISON: No exams were available for comparison FINDINGS: No fracture or dislocation. No lytic or blastic change. There is normal mineralization. The joint spaces are well-preserved. No significant degenerative/arthritic changes. No erosive changes evident. Other findings:No radiopaque foreign body apparent IMPRESSION: No acute findings. Dictated by: Hesham Rock MD 03/18/2020 15:43 Hesham Rock MD in [place] 03/18/2020 15:43
[2020-03-18 15:28] VITALS: BP 161/100; PULSE 74; RESP 20; O2SAT 96
--- NOTE | 2020-03-18 15:29 | [facility].EDGENADL ---
ED Disposition Clinical Impression: Laceration of thumb, left, complicated Disposition: Home, Self-Care Condition on Discharge: Good Instructions: DI for Laceration Repair Prescriptions: cephALEXin [Keflex 750mg Cap] 750 mg PO Q12H 5 Days #10 cap Transmission Status: Pending to [facility] Referrals: Jose Thrasher [Primary Care Provider] - - Critical Care Critical Care Time: No Attestation: On , the high probability of a clinically significant, sudden or life threatening deterioration of the following system(s) required my full and direct attention, intervention and personal management. The time I documented below is in addition to time spent performing reported procedures but includes the following listed in this critical care notation. Medical Decision Making - Medical Records Medical records reviewed: Yes: I reviewed the patient's medical records. - Eduardo Inquiry Pt receiving controlled substance: No Vital Signs: 03/18/20 14:58 03/18/20 15:28 03/18/20 15:30 Temperature 98.0 F Temperature Source Oral Pulse Rate [Left Radial] 80 74 74 Respiratory Rate 20 20 20 Blood Pressure [Right Arm] 188/101 H 161/100 H 161/100 H Blood Pressure Mean [Right Arm] 130 120 120 Blood Pressure Source [Right Arm] Automatic Cuff Automatic Cuff Automatic Cuff Blood Pressure Position [Right Arm] Sitting Supine Supine 02 Sat by Pulse Oximetry 96 96 96 Oxygen Delivery Method Room Air Room Air Room Air Medical Decision Narrative: 54-year-old male presents with laceration to thumb. The wound is mildly dirty, plan to copiously irrigate and repair at bedside. X-ray obtained for evaluation of fracture. X-rays showed no evidence of fracture or foreign body, wound copiously irrigated and repaired easily at bedside. Tetanus is up-to-date plan to discharge at this time with return precautions General Adult HPI - General Chief complaint: Wound/Laceration Stated complaint: ao/ 03/18 smashed right thumb Time Seen by Provider: 03/18/20 15:15 Mode of Arrival: Ambulatory Limitations: No Limitations Description of Symptoms (Recalled from ER Triage Doc. by RN): pt states that he was working on his car and hit his right thumb with a sledge hammer. Laceration noted to right thumb - History of Present Illness HPI narrative: 54-year-old male states that he was changing the you shaft on a drive shaft on his car and the sledgehammer slipped and slammed his right thumb. He had a laceration at that time and waited a few hours till he went to his primary care physician hoping to have it repaired. The bleeding had stopped and he had sensation to the distal thumb however they did not have suture materials at the primary care physician so he was sent to the emergency department. No fever no chills. - Related Data Home Medications Medication Instructions Recorded Confirmed Amlodipine Besylate 10 mg PO DAILY 04/25/18 04/25/18 Aspirin [Aspir 81] 81 mg PO DAILY 04/25/18 04/25/18 Atorvastatin Calcium [Lipitor 80mg 80 mg PO DAILY 04/25/18 04/25/18 Tab] Ezetimibe 10 mg PO DAILY 04/25/18 04/25/18 Losartan Potassium 50 mg PO DAILY 04/25/18 04/25/18 Metformin HCl [Metformin 1000mg 1,000 mg PO BIDWM 04/25/18 04/25/18 Tablets] Previous Rx's Medication Instructions Recorded Vancomycin HCl [Vancomycin 500mg 125 mg PO QID #28 vial 04/27/18 vial] cephALEXin [Keflex 750mg Cap] 750 mg PO Q12H 5 Days #10 cap 03/18/20 Allergies Allergy/AdvReac Type Severity Reaction Status Date / Time morphine Allergy Verified 04/25/18 00:08 [facility] History - Hepatitis A Screen Drug use history?: No High risk sexual behaviors?: No History of sexually transmitted infection?: No Currently employed?: No Childcare worker?: No Do you have indoor plumbing?: Yes Do you have electricity?: Yes Attestation statement:: This patient has been screened for Hepatitis A risk factors. Medical History: Reports:: Coronary Artery Disease,
[2020-03-18 15:30] VITALS: BP 161/100; PULSE 74; RESP 20; O2SAT 96
[2020-03-18 16:17] VITALS: BP 176/94; PULSE 80; RESP 20; TEMP 36.7; O2SAT 96
== END 2020-03-18 16:24 | disposition home or self-care (01) ==
PROVIDERS: Emergency Provider Emergency Medicine; PCP Family Medicine
DX: S61.011A Laceration without foreign body of right thumb without damage to nail, initial encounter (principal); W27.8XXA Contact with other nonpowered hand tool, initial encounter; Y92.093 Driveway of other non-institutional residence as the place of occurrence of the external cause
CPT/HCPCS: 12002; 73130; 73140; 99283

== ENCOUNTER → 2023-01-19 11:37 | Outpatient (CLI) | payer MEDICAID, SELFPAY ==
[2023-01-19 12:18] LABS: Alanine Aminotransferase 25 U/L (12-78); Albumin Level 4.3 g/dl (3.5-5.0); Albumin/Globulin Ratio 1.5 (1.1-1.8); Alkaline Phosphatase 112 U/L (38-126); Anion Gap 11.8 mEq/L (5-15); Aspartate Amino Transferase 36 U/L (17-59); Bilirubin,Total 0.7 mg/dl (0.2-1.3); Blood Urea Nitrogen 18 mg/dl (9-20); Calcium 9.4 mg/dl (8.4-10.2); Carbon Dioxide 27 mmol/L (22.0-30.0); Chloride 103 mmol/L (98-107); Estimated Glomerular Filt Rate 49 ml/min (>60); GFR (African American) 59 ML/MIN (>60); Globulin 2.8 g/dL (1.3-3.2); Glucose 152 mg/dl (74-100); Potassium 3.8 mmoL/L (3.5-5.1); Sodium 138 mmol/L (136-145); Total Protein,Serum 7.1 g/dl (6.3-8.2)
== END ==
PROVIDERS: PCP Family Medicine; Visit Provider Specialist
DX: E11.9 Type 2 diabetes mellitus without complications (principal); I63.439 Cerebral infarction due to embolism of unspecified posterior cerebral artery; Z79.4 Long term (current) use of insulin
CPT/HCPCS: 36415; 80053

== ENCOUNTER → 2023-01-20 14:05 | Outpatient (CLI) | payer MEDICAID, SELFPAY ==
--- NOTE | 2023-01-20 14:06 | MR_ITS ---
FINAL REPORT CLINICAL HISTORY: History of CVA 4 YEARS AGO. DIZZINESS WHEN STANDING. MIGRAINE HEADACHE X1 YEAR. FORGETS WORDS. FINDINGS: Multiplanar MR imaging of the brain was performed without and with contrast. There is mild atrophy. There are moderate scattered foci of increased signal in the deep white matter consistent with chronic ischemia. There is encephalomalacia in the inferior right cerebellar hemisphere. There is no evidence of intracranial hemorrhage or mass. No abnormal extra-axial fluid collection is seen. The ventricular size is within normal limits. There is no evidence of shift of the midline structures. No area of abnormal restricted diffusion is identified. No abnormal contrast enhancement is seen. There is mild mucoperiosteal thickening in the maxillary sinuses. IMPRESSION: Atrophy and chronic microvascular ischemia. Defect in the inferior right cerebellar hemisphere consistent with old infarct. Reviewed, Interpreted and Dictated by Brent Perry MD Transcribed by Palak Gaona Authenticated and [facility]
== END ==
PROVIDERS: PCP Family Medicine; Visit Provider Specialist
DX: I63.50 Cerebral infarction due to unspecified occlusion or stenosis of unspecified cerebral artery (principal)
CPT/HCPCS: 70553; A9576